=== PATIENT | female | born 1995 | race African-American/Black ===

== ENCOUNTER 2025-07-15 03:50 | Emergency (ER) | payer SELFPAY ==
--- NOTE | ~2025-07-15 | XR_ITS ---
Examination: XR chest 1V portable Clinical History: POSTERIOR UPPER BACK PAIN RADIATING TO CHEST Comparison: None Technique: Portable AP Findings: Heart size normal. Lungs clear. No acute bony abnormality. IMPRESSION: 1. No acute cardiopulmonary findings given portable technique. Reviewed, dictated and finalized at location R. [employer]
[2025-07-15 03:54] VITALS: BP 136/81; PULSE 99; RESP 16; TEMP 36.8; O2SAT 97
--- NOTE | 2025-07-15 04:49 | ED_ITS ---
HPI - Back Pain/Injury General Chief Complaint: Back Pain/Injury Stated Complaint: back pain History of Present Illness HPI Narrative: 30-year-old white female presents with onset 2 days ago of some mid back pain that has progressively worsened it is now about an 8 or 9/10. It is worse with deep breathing, turning, twisting, moving her arms around, sitting up or lying back. She has not really noticed a specific cough, fever or chills. She does not recall any trips stumble or fall. The pain however severe, in deep. She denies any previous cardiac history, denies any history of blood clots. Denies any previous history of back injury. There is no exertional component to her chest pain, there is no lightheadedness, palpitations, near-syncope or syncope. She has not been on any long trips, has not had any recent surgeries Related Data Allergies Allergy/AdvReac Type Severity Reaction Status Date / Time No Known Allergies Allergy Verified 07/15/25 04:18 Review of Systems 2 Review of Systems: ros is neg except as in HPI All systems reviewed & are unremarkable except as noted in HPI and below Exam 2 Narrative: pleasant, well-appearing, good historian, no acute distress Patient mildly obese Const: General: cooperative, healthy appearing, comfortable, no acute distress, well developed, alert, awake and Physically active Nutritional Appearance: well nourished and obese Orientation/consciousness: patient oriented x3 HENMT: Head: normal to inspection, normocephalic and atraumatic Ears: h earing grossly normal bilaterally and external ears normal Face/Nose/Sinus: N ormal external nose present, Normal nares present, Normal nasal mucous membranes and turbinates present and normal facial exam Face and sinus: normal facial exam Mouth: Yes Normal oral and palatal mucosa present, Yes lip normal, Yes tongue normal, Yes oropharynx normal and Yes moist mucous membranes Teeth and gingiva: dentition normal Throat: posterior oropharynx normal and tonsils normal ( erythematous) Eyes: General: appearance normal, both eyes and all related structures A lignment and Position: alignment normal and position normal Periorbital: p eriorbital findings normal Eyelids: eyelids normal Conjunctivae: c onjunctivae normal Sclera: sclerae normal Cornea: corneas normal P upils: Equal, round and reactive pupils present EOM: EOMs intact bilaterally Neck: Neck: normal visual inspection, full ROM and no lymphadenopathy Chest: Chest palpation & inspection: normal inspection of the chest Resp: Effort & Inspection: normal respiratory effort, able to speak in complete sentences, no audible wheezes, no respiratory distress and no use of accessory muscles Auscultation: clear to auscultation bilaterally Cardio: Jugular venous distension: no JVD Rate: regular rate Rhythm: r egular rhythm Other: Her pain is worsened by turning, twisting, taking a deep breath, sitting up or lying back. There is some tenderness on palpation of the lower mid chest, mid thoracic spine and paravertebral musculature. Distally neurovascular is intact GI: Inspection: normal to inspection GI Palp: No abdominal tenderness, No Tenderness to palpation present (GI), No Guarding due to palpation present (GI), No No hepatosplenomegaly present, No Palpable mass present and No Rebound tenderness present Skin: General skin exam: normal color, no rashes or lesions noted, elasticity normal and turgor normal Neuro: General: patient oriented x3, gait normal, tone normal and moves all extremities Cranial nerves: Yes CN's II-XII intact bilaterally, Yes Equal, round and reactive pupils present and Yes Bilaterally intact EOM present S peech: normal speech Motor exam (neuro): 5/5 motor strength present throughout and Normal motor muscle tone present throughout Sensory Exam: n ormal sensation Extrem: General: normal to inspection, normal exam except as noted and no pedal edema Psych: Appearance: grossly normal and well kempt Mental Status: mental status grossly normal Speech and movement: Normal speech and movement present Affect: normal affect Attitude: cooperative Thought process: Normal thought process present Course Course Emergency Course: Patient's chest pain seems to have a strong pleuritic and musculoskeletal component to it, however freely no specific injury, it is unknown exactly when she started having some symptoms but we will go ahead and do a cardiac workup, lung workup, PE workup, and treat with Toradol, aspirin, Flexeril, if needed morphine and Zofran. Patient has not had any long trips, no history of clots, no family history of clotting, but do have to keep PE in mind. We will send CBC, CMP, D-dimer, troponin, BNP, UA, do an EKG, get a chest x-ray. We will treat with Toradol, Flexeril, and an aspirin 324 5:16 a.m. EKG shows sinus rhythm, normal axis, normal QRS complexes normal ST T- wave 6:10 a.m. CBC is normal, CMP is normal except for very slight elevation of AST and ALT, INR is normal, drug screen is negative except for cannabis, urine is negative, troponin and BNP are both normal Heart score 0 Will discharge patient for musculoskeletal, chest wall pain, on naproxen, Flexeril, with follow-up with her PCP Discussed workup and results with the patient, as well as the plan and they are in agreement Medical decision making complexity and risk was moderate Vital Signs Vital signs: Vital Signs Temperature 36.8 C 07/15/25 03:54 Pulse Rate 99 07/15/25 03:54 Respiratory Rate 16 07/15/25 03:54 Blood Pressure 136/81 07/15/25 03:54 Pulse Oximetry 97 07/15/25 03:54 Oxygen Delivery Room Air 07/15/25 03:54 Temperature 36.8 C 07/15/25 03:54 Pulse Rate 99 07/15/25 03:54 Respiratory Rate 16 07/15/25 03:54 Blood Pressure 136/81 07/15/25 03:54 Pulse Oximetry 97 07/15/25 03:54 Oxygen Delivery Room Air 07/15/25 03:54 MDM Differential Diagnosis Differential Diagnosis: Differential diagnosis is in ED course Lab Data 07/15/25 05:03 07/15/25 05:03 Labs: Lab Results 07/15/25 07/15/25 Range/Units 05:03 05:14 WBC 17.5 H (4.8-10.8) K/mm3 RBC 3.85 L (4.20-5.40) M/mm3 Hgb 12.3 (12.0-15.0) g/dL Hct 35.8 (35.0-49.0) % MCV 93.0 (78.0-102.0) fL MCH 31.9 H (27.0-31.0) pg MCHC 34.4 (32-36) g/dL RDW 12.4 (11.6-14.4) % Plt Count 392 (150-420) K/mm3 MPV 9.9 (9.2-11.8) fl Immature Gran % (Auto) 0.4 H (0.0-0.0) % Neut % (Auto) 78.0 H (50.0-70.0) % Lymph % (Auto) 14.4 L (18.0-42.0) % Hale % (Auto) 6.1 (2.0-11.0) % Eos % (Auto) 0.9 L (1.0-6.0) % Baso % (Auto) 0.2 (0.0-1.0) % Lymph # (Auto) 2.51 (1.10-4.50) K/mm3 Hale # (Auto) 1.06 H (0.10-0.90) K/mm3 Eos # (Auto) 0.16 (0.02-0.50) K/mm3 Baso # (Auto) 0.04 (0.00-0.10) K/mm3 Abs Immat Gran (auto) 0.07 H (0.00-0.00) K/mm3 Absolute Neuts (auto) 13.62 H (1.70-7.20) K/mm3 Absolute Nucleated RBC 0.00 (0.00-0.00) K/mm3 Nucleated RBC % 0.0 (0-0.0) % PT 10.1 (9.50-12.1) Seconds INR 0.9 D-Dimer 0.26 (0.19-0.50) mg/L Sodium 141 (137-145) mmol/L Potassium 3.6 (3.4-5.0) mmol/L Chloride 108 H (98-107) mmol/L Carbon Dioxide 21 L (22-30) mmol/L Anion Gap 12 (4-12) mmol/L BUN 10 (7-17) mg/dL Creatinine 0.68 L (0.7-1.0) mg/dL Estim Creat Clear Calc Not Reportable Estimated GFR > 60 (59 - ) Glucose 100 (65-110) mg/dL Calculated Osmolality 291 (285-295) mOsm/kg Calcium 9.1 (8.4-10.2) mg/dL Total Bilirubin 0.6 (0.2-1.3) mg/dL AST 139 H (14-36) U/L ALT 117 H (6-35) U/L Alkaline Phosphatase 92 (38-126) U/L Troponin I < 0.012 (0.000-0.034) ng/mL NT-Pro-B Natriuret Pep 83 (19.9-100) pg/mL Total Protein 8.1 (6.3-8.2) g/dL Albumin 4.7 (3.5-5.1) g/dL Urine Color Light yellow (Yellow) Urine Appearance Clear (Clear) Urine pH 7.0 (5.0-8.0) Ur Specific [place] 1.010 (1.010-1.020) Urine Protein Negative (Negative) Urine Glucose (UA) Negative (Negative) Urine Ketones Negative (Negative) Ur Blood (Man) 1+ H (Negative) Urine Nitrate Negative (Negative) Urine Bilirubin Negative (Negative) Urine Urobilinogen 0.2 (0.2-1.0) mg/dL Leukocyte Esterase Rfl Negative (Negative) DAQUAN/UL Urine RBC None seen (0-2) /hpf Ur Squamous Epith Cells Occasional (Few) /hpf Urine Opiates Screen Negative (Negative) Urine Methadone Screen Negative (Negative) Ur Barbiturates Screen Negative (Negative) Ur Phencyclidine Scrn Negative (Negative) Ur Amphetamine Screen Negative (Negative) U Benzodiazepines Scrn Negative (Negative) Urine Cocaine Screen Negative (Negative) U Cannabinoids Screen Positive A (Negative) Discharge Plan Discharge Clinical Impression: Acute chest wall pain Patient Disposition: Home Condition: Stable Instructions: Chest Wall Pain (ED) Additional Instructions: Light activity Tylenol as needed Naproxen and Flexeril as prescribed Return to the emergency department if symptoms worsen Otherwise follow-up with your doctor in 1 week Return to the emergency department for fever, shortness of breath, worsening pain, other concerns Patient Language: Brazilian Prescriptions: New naproxen 500 mg tablet 500 mg PO BID PRN (Reason: pain) Qty: 60 0RF cyclobenzaprine 10 mg tablet 10 mg PO TID PRN (Reason: muscle spasm) Qty: 30 0RF Follow-up/Referrals: UNKNOWN,DOCTOR [Primary Care Provider] Time of Disposition: 06:18 Quality HEART score for chest pain patients History: slightly suspicious ECG: normal Age: < or = to 45 years Risk factors: no risk factors known Troponin: < or = to 1x normal limit Heart score: 0
--- NOTE | 2025-07-15 05:09 | ECG_ITS ---
Test Date: 2025-07-15 05:16:49 Measurements Intervals [place] Rate: 74 P: 55 DC: 132 QRS: 35 QRSD: 87 T: 10 QT: 384 QTc: 429 Interpretive Statements SINUS RHYTHM BORDERLINE ST-T WAVE ABNORMALITY- INFERIOR LEADS BORDERLINE ECG No previous ECG available for comparison Electronically Signed On 07-15-2025 07:05:41 [employer] by Jas Blandon D.O.
[2025-07-15] MEDS: KETOROLAC 30 MG/ML VIAL (*BKC) IV PUSH (05:22)
[2025-07-15] MEDS: ASPIRIN 81 MG CHEWABLE TABLET 324 MG PO (05:22)
[2025-07-15] MEDS: diazePAM INJ (*CRX) 10 MG/2 ML SYRINGE 5 MG IV PUSH (05:23)
[2025-07-15 05:30] LABS: Hematocrit 35.8 % (35.0-49.0); Hemoglobin 12.3 g/dL (12.0-15.0); Immature Granulocyte Percent A 0.4 % (0.0-0.0); Lymphocytes Absolute Auto 2.51 K/mm3 (1.10-4.50); Mean Corpuscular HGB Conc 34.4 g/dL (32-36); Mean Corpuscular Hemoglobin 31.9 pg (27.0-31.0); Mean Corpuscular Volume 93.0 fL (78.0-102.0); Nucleated Red Blood Cells Absolute Auto 0.00 K/mm3 (0.00-0.00); Nucleated Red Blood Cells Perc 0.0 % (0-0.0); Platelet Count Result 392 K/mm3 (150-420); Red Blood Count 3.85 M/mm3 (4.20-5.40); White Blood Count 17.5 K/mm3 (4.8-10.8)
[2025-07-15 05:42] LABS: Alanine Aminotransferase 117 U/L (6-35); Albumin Level 4.7 g/dL (3.5-5.1); Alkaline Phosphatase 92 U/L (38-126); Anion Gap 12 mmol/L (4-12); Aspartate Amino Transferase 139 U/L (14-36); Bilirubin,Total 0.6 mg/dL (0.2-1.3); Blood Urea Nitrogen 10 mg/dL (7-17); Calcium 9.1 mg/dL (8.4-10.2); Carbon Dioxide 21 mmol/L (22-30); Chloride 108 mmol/L (98-107); Estimated Glomerular Filt Rate > 60; Glucose 100 mg/dL (65-110); Osmolality Calculated 291 mOsm/kg (285-295); Potassium 3.6 mmol/L (3.4-5.0); Sodium 141 mmol/L (137-145); Total Protein 8.1 g/dL (6.3-8.2)
[2025-07-15 05:42] LABS: Add Urine Microscopic? YES; Appearance Urine Clear (Clear); Glucose Urine UA Negative (Negative); Leukocyte Esterase Ur Negative LEU/UL (Negative); Nitrate Urine Negative (Negative); Specific Grav Ur 1.010 (1.010-1.020)
[2025-07-15 05:51] LABS: NT Pro B Type Natriuretic Pept 83 pg/mL (19.9-100)
[2025-07-15 05:54] LABS: INR 0.9; Prothrombin Time 10.1 Seconds (9.50-12.1); Troponin I < 0.012 ng/mL (0.000-0.034)
[2025-07-15 06:00] LABS: Cannabinoid Screen Urine Positive (Negative)
[2025-07-15 06:24] VITALS: BP 123/81; PULSE 95; RESP 16; TEMP 36.8; O2SAT 100
== END 2025-07-15 06:27 | disposition home or self-care (01) ==
PROVIDERS: Emergency Provider Emergency Medicine
DX: R07.89 Other chest pain (principal)
CPT/HCPCS: 36415; 71045; 80053; 80307; 81001; 83880; 84484; 85025; 85380; 85610; 93005; 96374; 96375; 99284; A9270; J1885; J3360